=== PATIENT | female | born 1960 ===

== ENCOUNTER 2018-05-14 18:23 | Emergency (ER) | payer MEDICAID ==
[2018-05-14 18:25] VITALS: BMI 27.4
--- NOTE | 2018-05-14 19:42 | C.PDOC ---
Chief Complaint (Nursing): Back Pain Past Medical History Vital Signs: Last Vital Signs Temp 98.4 F 05/14/18 18:31 Pulse 114 H 05/14/18 18:31 Resp 18 05/14/18 18:31 BP 115/76 05/14/18 18:31 Pulse Ox 96 05/14/18 18:31 - Medical History PMH: Anxiety, Arthritis, Back Problems, Bronchitis, Depression, Gall Bladder Disease (stones), Migraine, Peripheral Edema, Seizures Denies: Diabetes, Hepatitis, HIV, HTN, Chronic Kidney Disease, Sexually Transmitted Disease Surgical History: Cholecystectomy - [facility] Procedures APPLICATION OF SPLINT (06/19/07) CLOSURE SKIN & SUBCUTANEOUS NEC (12/23/13) INJECT/INFUSE ELECTROLYT (11/14/12) INJECT/INFUSE NEC (08/22/15) PSYCHIA INTERV/EVAL NEC (05/12/14) PSYCHIAT DRUG THERAP NEC (07/27/01) TETANUS TOXOID ADMINIST (02/29/04) Family History: States: Unknown Family Hx - Social History Hx Tobacco Use: No Hx Alcohol Use: No Hx Substance Use: No (denies) - Immunization History Hx Tetanus Toxoid Vaccination: Yes Hx Influenza Vaccination: No Hx Pneumococcal Vaccination: No ED Course And Treatment O2 Sat by Pulse Oximetry: 96 Disposition - Disposition
[2018-05-14] MEDS ORDERED: Lactated Ringer's 1,000 ML IVB STA (19:53)
[2018-05-14] MEDS ORDERED: Lactated Ringer's 1,000 ML ONE (20:13)
[2018-05-14 20:17] LABS: BASO % 0.8 % (0.0-2.0); EOS # 0.3 K/uL (0.0-0.7); EOS % 4.4 % (0.0-4.0); HEMOGLOBIN 14.6 g/dL (11.0-16.0); LYMPH # 1.5 K/uL (1.0-4.3); LYMPH % 24.7 % (20.0-40.0); MEAN CELL VOLUME 86.8 fL (81.0-99.0); MEAN CORPUSCULAR HGB CONC 33.4 g/dL (33.0-37.0); MEAN PLATELET VOLUME 8.1 fL (7.2-11.7); MONO # 0.6 K/uL (0.0-0.8); MONO % 9.9 % (0.0-10.0); NEUT # 3.7 K/uL (1.8-7.0); NEUT % 60.2 % (50.0-75.0); RBC 5.04 Mil/uL (3.80-5.20); RED CELL DISTRIBUTION WIDTH 14.3 % (11.5-14.5); WHITE BLOOD COUNT 6.2 K/uL (4.8-10.8)
[2018-05-14 20:37] LABS: GFR AFRICAN-AMERICAN > 60; GFR NON-AFRICAN AMERICAN > 60
[2018-05-14 20:50] LABS: SQUAMOUS EPITHIAL 6 /hpf (0-5); URINE BACTERIA OCC (<OCC); URINE BILIRUBIN NEGATIVE (NEGATIVE); URINE BLOOD NEGATIVE (NEGATIVE); URINE CLARITY Hazy (Clear); URINE GLUCOSE (UA) NORMAL (Normal); URINE LEUKOCYTE ESTERASE 1+ Leu/uL (Negative); URINE PROTEIN NEGATIVE (NEGATIVE)
[2018-05-14 20:53] LABS: ALB/GLOB RATIO 1.2 (1.0-2.1); ALBUMIN 4.3 g/dL (3.5-5.0); ALT/SGPT 52 U/L (9-52); AST/SGOT 114 U/L (14-36); B-TYPE NATRIURETIC PEPTIDE 144 pg/mL (0-900); BLOOD UREA NITROGEN 4 mg/dL (7-17); CK-MB 5.79 ng/mL (0.0-3.38)
[2018-05-14 20:54] LABS: URINE COLOR YELLOW (YELLOW)
[2018-05-14 21:00] LABS: BARBITURATES, UR NEGATIVE (NEGATIVE); PHENCYCLIDINE, UR NEGATIVE (NEGATIVE)
[2018-05-14 21:05] LABS: BENZODIAZEPINES, UR POSITIVE (NEGATIVE); OPIATES, UR POSITIVE (NEGATIVE)
--- NOTE | 2018-05-14 22:00 | C.PDOC ---
History Of Present Illness Pt c/o generalized pain. Denies fall or trauma. Time Seen by Provider: 05/14/18 19:39 Chief Complaint (Nursing): Medical Clearance History Per: Patient Onset/Duration Of Symptoms: Days (3) Current Symptoms Are (Timing): Still Present Severity: Moderate Additional History Per: Prior Records Past Medical History Reviewed: Historical Data, Nursing Documentation, Vital Signs Vital Signs: Last Vital Signs Temp 98.4 F 05/14/18 18:31 Pulse 114 H 05/14/18 18:31 Resp 18 05/14/18 18:31 BP 115/76 05/14/18 18:31 Pulse Ox 96 05/14/18 18:31 - Medical History PMH: Anxiety, Arthritis, Back Problems, Bronchitis, Depression, Gall Bladder Disease (stones), Migraine, Peripheral Edema, Seizures Surgical History: Cholecystectomy - [facility] Procedures APPLICATION OF SPLINT (06/19/07) CLOSURE SKIN & SUBCUTANEOUS NEC (12/23/13) INJECT/INFUSE ELECTROLYT (11/14/12) INJECT/INFUSE NEC (08/22/15) PSYCHIA INTERV/EVAL NEC (05/12/14) PSYCHIAT DRUG THERAP NEC (07/27/01) TETANUS TOXOID ADMINIST (02/29/04) Family History: States: Unknown Family Hx - Social History Hx Tobacco Use: No Hx Alcohol Use: No Hx Substance Use: No (denies) - Immunization History Hx Tetanus Toxoid Vaccination: Yes Hx Influenza Vaccination: No Hx Pneumococcal Vaccination: No Review Of Systems Except As Marked, All Systems Reviewed And Found Negative. Constitutional: Negative for: Fever Cardiovascular: Negative for: Chest Pain Respiratory: Negative for: Shortness of Breath Gastrointestinal: Negative for: Vomiting, Abdominal Pain Musculoskeletal: Positive for: Back Pain Neurological: Negative for: Weakness, Numbness Psych: Negative for: Suicidal ideation Physical Exam - Physical Exam Appears: Non-toxic, No Acute Distress Skin: Warm, Dry Head: Atraumatic Eye(s): bilateral: PERRL, EOMI Neck: Normal ROM, No Midline Cervical Tenderness, No Step Off Deformity, Supple Chest: Symmetrical, No Deformity Cardiovascular: Rhythm Regular Respiratory: Normal Breath Sounds, No Accessory Muscle Use Gastrointestinal/Abdominal: Soft, No Tenderness Back: No CVA Tenderness, No Vertebral Tenderness Extremity: Normal ROM, No Deformity Neurological/Psych: Oriented x3, Normal Motor, Normal Sensation ED Course And Treatment - Laboratory Results Result Diagrams: 05/14/18 20:14 05/14/18 20:14 Lab Interpretation: No Acute Changes O2 Sat by Pulse Oximetry: 96 Pulse Ox Interpretation: Normal Reassessment Condition: Improved Disposition Counseled Patient/Family Regarding: Studies Performed, Diagnosis, Need For Followup, Rx Given - Disposition Referrals: Karina Hawley MD [Staff Provider] - Disposition: HOME/ ROUTINE Disposition Time: 22:01 Condition: IMPROVED Additional Instructions: Take your medications as prescribed. Follow up with your doctor for further evaluation and treatment. Return to the ER if you develop weakness, numbness, worsening of symptoms or if you have any other concerns. Prescriptions: Naproxen 375 mg PO BID PRN #20 tablet PRN Reason: Pain, Moderate (4-7) Instructions: Muscle and Bone Pain (DC) Forms: [facility] (Northern Irish) - Clinical Impression Clinical Impression: Musculoskeletal pain
[2018-05-14 22:07] VITALS: BP 111/77; PULSE 97; RESP 20; TEMP 98.1; O2SAT 99
== END 2018-05-14 22:15 | disposition home or self-care (01) ==
LOC: C.ER 18:23
DX: M79.1 Myalgia (principal)
CPT/HCPCS: 80053; 80185; 80320; 80324; 80345; 80346; 80349; 80353; 80358; 80361; 81001; 83735; 83880; 83992; 84484; 85025; 87086; 96361; 96374; 99284; J1885; J7120

== ENCOUNTER 2018-11-18 16:05 | Observation (INO) | payer MEDICAID ==
[2018-11-18 16:06] VITALS: BMI 29.3
[2018-11-18] MEDS ORDERED: Sodium Chloride 0.9% 500 ML IV ONE (16:15)
--- NOTE | 2018-11-18 16:32 | C.PDOC ---
History Of Present Illness Patient PAMELA from home, currently c/o low back pain radiating down the right leg. When EMS arrived, they state patient was acutely confused. On ED arrival, she is AAOx1; patient denies chest pain, palpitations, SOB, visual changes, facial droop, extremity weakness, visual changes. She does admit to decreased sensation/tingling in right leg. PMHx (from prior records) - anxiety, seizure disoder, migraines, chronic back pain Time Seen by Provider: 11/18/18 16:09 Chief Complaint (Nursing): Back Pain History Per: Patient, EMS History/Exam Limitations: other (confusion ) Onset/Duration Of Symptoms: Unknown Current Symptoms Are (Timing): Still Present Quality Of Discomfort: "Pain" Severity: Moderate Previous Symptoms: Chronic Pain Associated Symptoms: None. denies: Incontinence, New Weakness, New Numbness Past Medical History Reviewed: Historical Data, Nursing Documentation, Vital Signs Vital Signs: Last Vital Signs Temp 98 F 11/18/18 16:11 Pulse 92 H 11/18/18 16:11 Resp 20 11/18/18 16:11 BP 149/80 11/18/18 16:11 Pulse Ox 98 11/18/18 16:11 - Medical History PMH: Anxiety, Arthritis, Back Problems, Bronchitis, Depression, Gall Bladder Disease (stones), Migraine, Peripheral Edema, Seizures Surgical History: Cholecystectomy - [facility] Procedures APPLICATION OF SPLINT (06/19/07) CLOSURE SKIN & SUBCUTANEOUS NEC (12/23/13) INJECT/INFUSE ELECTROLYT (11/14/12) INJECT/INFUSE NEC (08/22/15) PSYCHIA INTERV/EVAL NEC (05/12/14) PSYCHIAT DRUG THERAP NEC (07/27/01) TETANUS TOXOID ADMINIST (02/29/04) Family History: States: Unknown Family Hx - Social History Hx Tobacco Use: No Hx Alcohol Use: No Hx Substance Use: No (denies) - Immunization History Hx Tetanus Toxoid Vaccination: Yes Hx Influenza Vaccination: No Hx Pneumococcal Vaccination: No Review Of Systems Constitutional: Negative for: Fever, Chills Cardiovascular: Negative for: Chest Pain, Palpitations Respiratory: Negative for: Shortness of Breath Gastrointestinal: Negative for: Nausea, Vomiting, Abdominal Pain, Diarrhea Genitourinary: Negative for: Dysuria, Hematuria Musculoskeletal: Positive for: Back Pain Skin: Negative for: Rash Neurological: Positive for: Confusion. Negative for: Weakness, Headache, Dizziness Physical Exam - Physical Exam Appears: Non-toxic, No Acute Distress Skin: Normal Color, Warm, Dry Head: Atraumatic, Normacephalic Eye(s): bilateral: Normal Inspection, PERRL, EOMI Oral Mucosa: Moist Cardiovascular: Rhythm Regular Respiratory: Normal Breath Sounds, No Rales, No Rhonchi, No Wheezing Gastrointestinal/Abdominal: Normal Exam, Bowel Sounds, Soft, No Tenderness Back: No CVA Tenderness, No Vertebral Tenderness, Paraspinal Tenderness (right lumbar paraspinal TTP) Extremity: Bilateral: Atraumatic, Normal Color And Temperature, Normal ROM Neurological/Psych: No Oriented x3 (AAOx1 (oriented to time only)), Normal Speech, Normal Cranial Nerves, No Cerebellar Signs, Normal Motor, Normal Sensation ED Course And Treatment - Laboratory Results Result Diagrams: 11/18/18 16:59 ECG: Interpreted By Me, Viewed By Me (NSR 86 bpm, normal axis, no acute ST/T wave changes) ECG Interpretation: Normal O2 Sat by Pulse Oximetry: 98 - CT Scan/US CT HEAD Other Rad Studies (CT/US): Read By Radiologist, Radiology Report Reviewed CT/US Interpretation: Accession No. : [id number]. Patient Name / ID : LUNA KENT / [id number]. Exam Date : 11/18/2018 16:30:31 ( Approved ). Study Comment : Sex / Age : F / [id number]. Creator : Scott Hernandez. Dictator : Kristin Serna MD. Real Estate Subagent : Printing Table Worker : Kristin Serna MD. Approver2 : Report Date : 11/18/2018 16:41:37. My Comment : . Date of service: 11/18/2018. PROCEDURE: CT HEAD WITHOUT CONTRAST. HISTORY: AMS. COMPARISON: Noncontrast head CT performed 04/26/12. TECHNIQUE: Axial computed tomography images were obtained through the head/brain without intravenous contrast. Radiation dose: Total exam DLP = 1077.23 mGy-cm. This CT exam was performed using one or more of the following dose reduction techniques: Automated exposure control, adjustment of the mA and/or kV according to patient size, and/or use of iterative reconstruction technique. FINDINGS: Streak artifact limits evaluation of the skull base. HEMORRHAGE: No intracranial hem orrhage. BRAIN: Diffuse atrophy with prominence of the ventricles and sulci noted. No mass effect or edema. Chronic lacunar-type infarct in the left middle cranial fossa measures approximately 6 mm. Scattered periventricular and subcortical white matter hypodensities, which are nonspecific, but often seen with chronic microvascular ischemic disease. Please note that MRI with diffusion imaging is more sensitive in the detection of acute ischemic event. VENTRICLES: No hydrocephalus. CALVARIUM: Unremarkable. PARANASAL SINUSES: Unremarkable as visualized. No significant inflammatory changes. MASTOID AIR CELLS: Unremarkable as visualized. No inflammatory changes. OTHER FINDINGS: None. IMPRESSION: Generalized atrophy. Nonspecific white matter changes. 6 mm chronic lacunar type infarct in the left middle cranial fossa. Progress Note: Blood work, CT head, EKG, UA, UDS ordered and reviewed. Disposition - Disposition Forms: [employer] (Wallisian)
[2018-11-18] MEDS ORDERED: Sodium Chloride 0.9% 1,000 ML ONE (16:33)
--- NOTE | 2018-11-18 16:54 | CT ---
Date of service: 11/18/2018 PROCEDURE: CT HEAD WITHOUT CONTRAST. HISTORY: AMS COMPARISON: Noncontrast head CT performed 04/26/12 TECHNIQUE: Axial computed tomography images were obtained through the head/brain without intravenous contrast. Radiation dose: Total exam DLP = 1077.23 mGy-cm. This CT exam was performed using one or more of the following dose reduction techniques: Automated exposure control, adjustment of the mA and/or kV according to patient size, and/or use of iterative reconstruction technique. FINDINGS: Streak artifact limits evaluation of the skull base. HEMORRHAGE: No intracranial hemorrhage. BRAIN: Diffuse atrophy with prominence of the ventricles and sulci noted. No mass effect or edema. Chronic lacunar-type infarct in the left middle cranial fossa measures approximately 6 mm. Scattered periventricular and subcortical white matter hypodensities, which are nonspecific, but often seen with chronic microvascular ischemic disease. Please note that MRI with diffusion imaging is more sensitive in the detection of acute ischemic event. VENTRICLES: No hydrocephalus. CALVARIUM: Unremarkable. PARANASAL SINUSES: Unremarkable as visualized. No significant inflammatory changes. MASTOID AIR CELLS: Unremarkable as visualized. No inflammatory changes. OTHER FINDINGS: None. IMPRESSION: Generalized atrophy. Nonspecific white matter changes. 6 mm chronic lacunar type infarct in the left middle cranial fossa.
[2018-11-18 17:02] LABS: BASO # 0.1 K/uL (0.0-0.2); EOS # 0.1 K/uL (0.0-0.7); MONO # 0.5 K/uL (0.0-0.8); NRBC % 0.1 % (0.0-2.0); WHITE BLOOD COUNT 4.1 K/uL (4.8-10.8)
[2018-11-18 17:06] LABS: BASO % 2.4 % (0.0-2.0); EOS % 1.5 % (0.0-4.0); HEMOGLOBIN 13.6 g/dL (11.0-16.0); LYMPH % 24.9 % (20.0-40.0); MEAN CELL VOLUME 88.2 fL (81.0-99.0); MEAN CORPUSCULAR HEMOGLOBIN 29.6 pg (27.0-31.0); MEAN CORPUSCULAR HGB CONC 33.6 g/dL (33.0-37.0); MEAN PLATELET VOLUME 8.2 fL (7.2-11.7); NEUT # 2.4 K/uL (1.8-7.0); NEUT % 59.2 % (50.0-75.0); RBC 4.59 Mil/uL (3.80-5.20); RED CELL DISTRIBUTION WIDTH 14.5 % (11.5-14.5)
[2018-11-18 18:17] LABS: ALB/GLOB RATIO 1.2 (1.0-2.1); ALBUMIN 4.1 g/dL (3.5-5.0); ALT/SGPT 27 U/L (9-52); AST/SGOT 32 U/L (14-36); BLOOD UREA NITROGEN 8 mg/dL (7-17); CALCIUM 9.2 mg/dl (8.6-10.4); GFR NON-AFRICAN AMERICAN > 60
[2018-11-18 18:28] LABS: CK-MB 0.74 ng/mL (0.0-3.38)
[2018-11-18 18:32] LABS: SQUAMOUS EPITHIAL 1 /hpf (0-5); URINE BACTERIA OCC (<OCC); URINE BILIRUBIN NEGATIVE (NEGATIVE); URINE BLOOD NEGATIVE (NEGATIVE); URINE CLARITY Clear (Clear); URINE COLOR Straw (YELLOW); URINE GLUCOSE (UA) NORMAL (Normal); URINE LEUKOCYTE ESTERASE NEG Leu/uL (Negative); URINE PROTEIN NEGATIVE (NEGATIVE); URINE UROBILINOGEN NORMAL mg/dL (0.2-1.0)
[2018-11-18 18:37] LABS: BARBITURATES, UR NEGATIVE (NEGATIVE); BENZODIAZEPINES, UR POSITIVE (NEGATIVE); OPIATES, UR NEGATIVE (NEGATIVE); PHENCYCLIDINE, UR NEGATIVE (NEGATIVE)
[2018-11-19] MEDS ORDERED: DiphenhydrAMINE 50 mg/ml Inj IVP STA (02:51)
[2018-11-19 08:25] VITALS: BP 113/72; PULSE 78; RESP 18; TEMP 97.6; O2SAT 96
--- NOTE | 2018-11-19 17:47 | CP.PCM.PN ---
<Horacio Franco - Last Filed: 11/19/18 17:42> Subjective - Date & Time of Evaluation Date of Evaluation: 11/19/18 Time of Evaluation: 17:42 - Subjective Subjective: Basim Payne Note for AMA This patient was seen and examined as she wanted to leave [facility] because she said she needed to take care of her sons patient was requesting a litany of controlled substances in order to be discharged such as xanax, zolpidem, percocet for her "anxiety and pain". It was explained that the patient could not be given these medications/prescriptions as I am not her outpatient doctor who normally prescribes them The patient was seen walking around the unit by staff and myself with a steady gait, ANOx3 and was requesting to leave [facility] Patient was not provided any of the above prescriptions and she understood why She could not tell me who her outpatient psychiatrist was and states that she did not have one Stated " I have gotten these prescriptions from other hospitals before I don't see why I cannot get them from you now" Gen: no acute distress, otherwise pleasant Neck: Supple FROM, no masses Lungs: CTA b/l no adventitious lung sounds Heart: RRR no M/R/G Abd: non distended non tender Extrem: 2+ pulses throughout, no edema b/l lower extrem Gait: Normal, slow to rise but steady gait Psych: Anox3; somewhat anxious; tangential thought process the patient was provided with AMA form, which was signed in the presence of the nurse Horacio Franco PGY3 Objective - Vital Signs/Intake and Output Vital Signs (last 24 hours): Temp Pulse Resp BP Pulse Ox 97.6 F 78 18 113/72 96 11/19/18 08:24 11/19/18 08:24 11/19/18 08:24 11/19/18 08:24 11/19/18 08:42 - Labs Labs: 11/18/18 16:59 11/18/18 16:59 <Georgina Muñoz V - Last Filed: 11/19/18 21:45> Objective - Vital Signs/Intake and Output Vital Signs (last 24 hours): Temp Pulse Resp BP Pulse Ox 97.6 F 78 18 113/72 96 11/19/18 08:24 11/19/18 08:24 11/19/18 08:24 11/19/18 08:24 11/19/18 08:42 - Labs Labs: 11/18/18 16:59 11/18/18 16:59 Attending/Attestation - Attestation I have personally seen and examined this patient.: Yes I have fully participated in the care of the patient.: Yes I have reviewed all pertinent clinical information, including history, physical exam and plan: Yes Notes (Text): Hospitalist Note: 58 Female PMHX PMHx: Migraines, low back pain, SLE, seizure disorder, opiate dependence, arthritis, anxiety, depression, noncompliance comes into the hospital, requiring medications, which are controlled, but does not regularly follow-up with her PMD, Dr. Karina Hawley, reports has not seen him in months. patient is awake, alert, oriented X3. Patient has chronic back pain, reports Motrin is not sufficient for her pain. Patient is noted frequent flier at [facility] for similar hospitalizations, and has left against medical advice several times for similar complaints. Patient is seen ambulatory, walking. Patient is in no acute distress. Patient denies headache, denies chest pain, denies shortness of breathe, denies abdominal pain, denies nausea, denies vomitting, denies diarrhea. Reports she feels constipated. Patient reports she does not want to be at the hospital. She is requesting to leave against medical advice. Resident has described risks of leaving against medical advice to the patient, witnessed by his nurse. Patient advised to follow-up with her PMD and establish care for management of her chronic back pain. Prior EMR, noted in prior H&P. PSH: Unclear All: morphine (vomiting), seroquel, tramadol Family Hx: Noncontributory Social Hx: On Disability (for low back pain and migraines), Denies tobacco/etoh/illicit drug use. Home Medications: See MAR
--- NOTE | 2018-11-21 09:31 | CARD ---
APPROVED REPORT Date of service: 11/18/2018 EKG Measurement Heart [id number] <Conclusion> Normal sinus rhythm Normal ECG
== END 2018-11-19 10:22 | disposition home or self-care (01) ==
LOC: C.ER 16:05 → C.9E 22:26 → C.5S 23:21
PROVIDERS: ADMIT Internal Medicine Pulmonary Disease; ATTEND Internal Medicine Pulmonary Disease
DX: M54.5 Low back pain (principal); G43.909 Migraine, unspecified, not intractable, without status migrainosus; F41.9 Anxiety disorder, unspecified; G40.909 Epilepsy, unspecified, not intractable, without status epilepticus; K59.00 Constipation, unspecified; G89.29 Other chronic pain; M32.9 Systemic lupus erythematosus, unspecified; Z91.19 Patient's noncompliance with other medical treatment and regimen; Z53.21 Procedure and treatment not carried out due to patient leaving prior to being seen by health care provider
CPT/HCPCS: 70450; 80053; 80185; 80324; 80345; 80346; 80349; 80353; 80358; 80361; 81001; 82550; 82553; 83992; 84484; 85025; 99285; G0378; J1165; J1885; J7040